=== PATIENT | female | born 1945 | race Caucasian/White ===

== ENCOUNTER → 2017-10-14 | Outpatient (CLI) | payer MEDICARE ==
[~2017-10-14] MED LIST: AMLO10TA6 PO; ASPI-691 PO; ASPI325T17 PO; ATEN50TA41 PO; OMEP40CA6 PO; POTA99TA2 PO; TRAM50TA2 PO; TRIA1TAB5 PO; VITA1TAB3 PO
== END | disposition home or self-care (01) ==
LOC: CARD 07:25
PROVIDERS: ATTEND Family Medicine
DX: G56.03 Carpal tunnel syndrome, bilateral upper limbs (principal)
CPT/HCPCS: 95885; 95908

== ENCOUNTER 2019-05-22 23:18 | Inpatient (IN) | payer MEDICARE, OTHER ==
[~2019-05-22] VITALS: Ht 170.2 cm; Wt 76.4 kg
[~2019-05-22 23:18] MED LIST changes: -AMLO10TA6 PO; +AMLO10TA8 PO; +OMEP40CA42 PO; -OMEP40CA6 PO
[2019-05-22] MEDS: LABETALOL 5MG/ML, 20ML IVPush STA ×2 (23:42→23:51)
[2019-05-22] MEDS ORDERED: LABETALOL 5MG/ML, 20ML ONE (23:50)
--- NOTE | 2019-05-22 23:57 | NUR ---
Pt blood pressure currently 173/62; contacted to verify he wants Labetalol given, MD states to hold medication for now.
[2019-05-23] VITALS (7 sets, daily range): BP systolic 124–186; BP diastolic 70–80
[2019-05-23 00:06] LABS: BASOPHILS # (AUTO) 0.04 x10^3/uL (0-0.1); BASOPHILS % (AUTO) 1 % (0-1); EOSINOPHILS # (AUTO) 0.09 x10^3/uL (0-0.4); EOSINOPHILS % (AUTO) 1 % (1-7); LYMPHOCYTES # (AUTO) 0.76 x10^3/uL (1-3.4); LYMPHOCYTES % (AUTO) 9 % (22-44); MD NO; MEAN CORPUSCULAR HEMOGLOBIN 28.4 pg (27.0-34.8); MEAN CORPUSCULAR HGB CONC 34.2 g/dL (32.4-35.8); MEAN CORPUSCULAR VOLUME 83.2 fL (80-100); MEAN PLATELET VOLUME 8.2 fL (7.4-10.4); MONOCYTES # (AUTO) 0.59 x10^3/uL (0.2-0.8); MONOCYTES % (AUTO) 7 % (2-9); NEUTROPHILS # (AUTO) 7.12 x10^3/uL (1.8-6.8); NEUTROPHILS % (AUTO) 83 % (42-75); PLATELET COUNT 266 x10^3/uL (130-400); RED BLOOD COUNT 5.02 x10^6/uL (3.82-5.3); RED CELL DISTRIBUTION WIDTH 14.7 % (9.6-15.2)
[2019-05-23 00:18] LABS: ALANINE AMINOTRANSFERASE 13 U/L (12-78); ALBUMIN 2.7 g/dL (3.4-5.0); ANION GAP 7 mmol/L (5-15); CALCIUM 8.8 mg/dL (8.5-10.1); CHLORIDE 102 mmol/L (98-107); CREATININE 1.07 mg/dL (0.55-1.02)
[2019-05-23 00:23] LABS: ALKALINE PHOSPHATASE 63 U/L (45-117); BILIRUBIN,TOTAL 0.7 mg/dL (0.2-1.0); TOTAL PROTEIN 6.6 g/dL (6.4-8.2); TROPONIN I < 0.015 ng/mL (0.000-0.045)
--- NOTE | 2019-05-23 01:25 | NUR ---
PT RETURNS FROM CTA AT THIS TIME.
[2019-05-23] MEDS ORDERED: OMNIPAQUE 350 MG/ML, 100ML BOTTLE ONE (01:34)
[2019-05-23] MEDS ORDERED: Enoxaparin 1 mg/kg protocol SQ SCH (02:00)
--- NOTE | 2019-05-23 02:09 | NUR ---
Pt helped to bedside comode. Informed to please not take tramadol or labetolo. That her medications will be managed by the nurses so that way we know whats going in and out of her body.
[2019-05-23] MEDS ORDERED: ONDANSETRON 2MG/ML, 2ML IVPush PRN (03:00)
[2019-05-23] MEDS: ACETAMINOPHEN 325 MG TABLET PO PRN ×3 (05:19→21:01)
[2019-05-23] MEDS: hydrALAzine 20 MG/ML, 1ML IVPush PRN ×2 (05:20→13:38)
[2019-05-23] MEDS ORDERED: LISI-167 PO (06:37)
[2019-05-23 08:34] LABS: MICROSCOPIC AUTO
[2019-05-23 08:35] LABS: CULTURE INDICATED? NO
[2019-05-23] MEDS ORDERED: POTASSIUM CHLORIDE 20 MEQ TAB.ER.PRT PO ONE (09:00)
[2019-05-23 09:41] LABS: TROPONIN I < 0.015 ng/mL (0.000-0.045)
[2019-05-23] MEDS: RIVAROXABAN 15 MG TABLET PO SCH ×2 (09:55→17:24)
[2019-05-23] MEDS: AMLODIPINE 10 MG TAB PO SCH (09:55)
[2019-05-23] MEDS: LISINOPRIL 10 MG TABLET PO SCH (09:55)
[2019-05-23] MEDS: OMEPRAZOLE 20 MG CAPSULE.DR PO SCH (09:55)
[2019-05-23] MEDS ORDERED: TRAM50TA2 PO (11:13)
[2019-05-23] MEDS ORDERED: MORPHINE SULFATE 4 MG/ML, 1ML IVPush PRN (14:00)
[2019-05-23] MEDS ORDERED: OXYcodone/APAP 5/325MG TABLET PO PRN (14:00)
[2019-05-23 14:20] LABS: TROPONIN I < 0.015 ng/mL (0.000-0.045)
[2019-05-23] MEDS: ATENOLOL 50 MG TABLET PO SCH ×3 (15:15→22:47)
[2019-05-23] MEDS ORDERED: RIVAROXABAN 15 MG TABLET PO SCH (17:00)
[2019-05-23 18:04] LABS: TROPONIN I < 0.015 ng/mL (0.000-0.045)
[2019-05-24] VITALS (9 sets, daily range): BP systolic 144–199; BP diastolic 59–79
[2019-05-24 02:07] LABS: BASOPHILS # (AUTO) 0.09 x10^3/uL (0-0.1); BASOPHILS % (AUTO) 1 % (0-1); EOSINOPHILS % (AUTO) 1 % (1-7); LYMPHOCYTES # (AUTO) 0.94 x10^3/uL (1-3.4); LYMPHOCYTES % (AUTO) 11 % (22-44); MD NO; MEAN CORPUSCULAR HGB CONC 33.4 g/dL (32.4-35.8); MEAN CORPUSCULAR VOLUME 83.9 fL (80-100); MEAN PLATELET VOLUME 8.9 fL (7.4-10.4); MONOCYTES % (AUTO) 8 % (2-9); NEUTROPHILS # (AUTO) 6.62 x10^3/uL (1.8-6.8); NEUTROPHILS % (AUTO) 78 % (42-75); PLATELET COUNT 283 x10^3/uL (130-400); RED BLOOD COUNT 4.63 x10^6/uL (3.82-5.3); RED CELL DISTRIBUTION WIDTH 14.6 % (9.6-15.2)
[2019-05-24 02:14] LABS: ALANINE AMINOTRANSFERASE 8 U/L (12-78); ALBUMIN 2.1 g/dL (3.4-5.0); ANION GAP 6 mmol/L (5-15); CALCIUM 8.3 mg/dL (8.5-10.1); CHLORIDE 103 mmol/L (98-107); CREATININE 1.23 mg/dL (0.55-1.02)
[2019-05-24 02:22] LABS: TROPONIN I < 0.015 ng/mL (0.000-0.045)
[2019-05-24 02:26] LABS: ALKALINE PHOSPHATASE 53 U/L (45-117); BILIRUBIN,TOTAL 0.4 mg/dL (0.2-1.0); TOTAL PROTEIN 5.7 g/dL (6.4-8.2)
[2019-05-24] MEDS: ATENOLOL 50 MG TABLET PO SCH ×3 (06:13→22:35)
[2019-05-24] MEDS: ACETAMINOPHEN 325 MG TABLET PO PRN ×2 (07:09→12:16)
[2019-05-24] MEDS: AMLODIPINE 10 MG TAB PO SCH (08:45)
[2019-05-24] MEDS: LISINOPRIL 10 MG TABLET PO SCH (08:45)
[2019-05-24] MEDS: RIVAROXABAN 15 MG TABLET PO SCH ×2 (08:45→16:41)
[2019-05-24] MEDS: OMEPRAZOLE 20 MG CAPSULE.DR PO SCH (08:45)
[2019-05-24] MEDS: hydrALAzine 20 MG/ML, 1ML IVPush PRN (10:15)
[2019-05-24] MEDS: ASA/APAP/ CAFFEINE TABLET PO PRN (12:33)
[2019-05-25] MEDS: ASA/APAP/ CAFFEINE TABLET PO PRN (01:11)
[2019-05-25 02:00] VITALS: BP 151/78
[2019-05-25 06:37] VITALS: BP 189/79
[2019-05-25] MEDS: hydrALAzine 20 MG/ML, 1ML IVPush PRN (07:04)
[2019-05-25 08:06] LABS: ALANINE AMINOTRANSFERASE 13 U/L (12-78); ALBUMIN 2.3 g/dL (3.4-5.0); ANION GAP 7 mmol/L (5-15); CALCIUM 8.7 mg/dL (8.5-10.1); CHLORIDE 101 mmol/L (98-107); CREATININE 0.99 mg/dL (0.55-1.02)
[2019-05-25 08:07] LABS: ALKALINE PHOSPHATASE 56 U/L (45-117); BILIRUBIN,TOTAL 0.5 mg/dL (0.2-1.0); TOTAL PROTEIN 6.3 g/dL (6.4-8.2)
[2019-05-25] MEDS: AMLODIPINE 10 MG TAB PO SCH (08:32)
[2019-05-25] MEDS: ATENOLOL 50 MG TABLET PO SCH (08:32)
[2019-05-25] MEDS: OMEPRAZOLE 20 MG CAPSULE.DR PO SCH (08:32)
[2019-05-25] MEDS: RIVAROXABAN 15 MG TABLET PO SCH (08:32)
[2019-05-25 08:33] VITALS: BP 160/77
[2019-05-25] MEDS ORDERED: LISINOPRIL 40 MG TABLET PO SCH (09:00)
[2019-05-25] MEDS ORDERED: CHLORTHALIDONE 25 MG TABLET PO SCH (09:00)
[2019-05-25 12:30] VITALS: BP 169/72
[2019-05-25] MEDS ORDERED: LISI40TA PO (12:51)
[2019-05-25] MEDS ORDERED: HYDR-3343 PO (12:51)
[2019-05-25] MEDS ORDERED: CHLO25TA PO (12:51)
[2019-05-25] MEDS ORDERED: RIVA15TA PO (12:53)
[2019-05-25] MEDS ORDERED: RIVA20TA PO (12:53)
[2019-05-25] MEDS ORDERED: ATEN25TA PO (12:57)
[2019-05-25] MEDS ORDERED: CLON0.1T22 PO (12:58)
[2019-06-13] MEDS ORDERED: RIVAROXABAN 20 MG TABLET PO SCH (08:00)
== END 2019-05-25 15:04 | disposition home or self-care (01) | DRG 175 ==
LOC: ED 05-23 00:06 → EDIP 05-23 02:24 → 5SO 05-23 04:04
PROVIDERS: ADMIT Internal Medicine; ATTEND Internal Medicine
DX: I26.99 Other pulmonary embolism without acute cor pulmonale (principal); N17.0 Acute kidney failure with tubular necrosis; E87.1 Hypo-osmolality and hyponatremia; I16.1 Hypertensive emergency; J90 Pleural effusion, not elsewhere classified; Z68.1 Body mass index [BMI] 19.9 or less, adult; I16.0 Hypertensive urgency; F17.200 Nicotine dependence, unspecified, uncomplicated; E27.8 Other specified disorders of adrenal gland; I12.9 Hypertensive chronic kidney disease with stage 1 through stage 4 chronic kidney disease, or unspecified chronic kidney disease; J44.9 Chronic obstructive pulmonary disease, unspecified; N18.3 Chronic kidney disease, stage 3 (moderate); Z96.643 Presence of artificial hip joint, bilateral; Z88.0 Allergy status to penicillin; R00.1 Bradycardia, unspecified
CPT/HCPCS: 36415; 71045; 71275; 80053; 81001; 83880; 84443; 84484; 85025; 85303; 85306; 85379; 85598; 85610; 85613; 85670; 85730; 85732; 86146; 86147; 93005; 93306; 93356; 99285; G0378; Q9967; J0360

== ENCOUNTER 2020-09-26 22:34 | Inpatient (IN) | payer MEDICARE, OTHER ==
[~2020-09-26] VITALS: Ht 170.2 cm; Wt 74.6 kg
[~2020-09-26 22:34] MED LIST changes: +AMLO-211 PO; -AMLO10TA8 PO; +ATEN25TA PO; +CHLO25TA PO; +CLON0.1T22 PO; +HYDR-3343 PO; +LISI-167 PO; +LISI40TA9 PO; -OMEP40CA42 PO; +OMEP40CA8 PO; +RIVA15TA PO; +RIVA20TA PO
--- NOTE | 2020-09-26 22:45 | NUR ---
PT REFUSING NC, ONLY ALLOWING RNS TO KEEP NON REBREATHER ON. AWARE.
[2020-09-26] MEDS ORDERED: SODIUM CHLORIDE FLUSH 10ML SYR IVF ONE (23:00)
[2020-09-26 23:33] LABS: BASOPHILS % (AUTO) 0 % (0-1); EOSINOPHILS % (AUTO) 1 % (1-7); LYMPHOCYTES % (AUTO) 5 % (22-44); MEAN CORPUSCULAR HEMOGLOBIN 27.7 pg (27.0-34.8); MEAN PLATELET VOLUME 8.4 fL (7.4-10.4); MONOCYTES % (AUTO) 5 % (2-9); NEUTROPHILS % (AUTO) 90 % (42-75); PLATELET COUNT 321 x10^3/uL (130-400); RED BLOOD COUNT 4.88 x10^6/uL (3.82-5.3)
[2020-09-26 23:42] LABS: INTERNATIONAL NORMALIZED RATIO 0.93 (0.93-1.1)
[2020-09-26 23:43] LABS: ALANINE AMINOTRANSFERASE 28 U/L (12-78); ALBUMIN 2.8 g/dL (3.4-5.0); ANION GAP 8 mmol/L (5-15); CALCIUM 9.1 mg/dL (8.5-10.1); CHLORIDE 98 mmol/L (98-107); CREATININE 1.11 mg/dL (0.55-1.02)
[2020-09-26 23:47] LABS: ALKALINE PHOSPHATASE 59 U/L (45-117); BILIRUBIN,TOTAL 0.5 mg/dL (0.2-1.0); TOTAL PROTEIN 6.8 g/dL (6.4-8.2)
[2020-09-27] MEDS ORDERED: NITROGLYCERIN OINT 2%, 1GM TP ONE
[2020-09-27] MEDS ORDERED: FUROSEMIDE 40 MG/4 ML IVPush ONE
--- NOTE | 2020-09-27 00:18 | NUR ---
PT REPORTS FEELING BETTER WHILE AT REST.
[2020-09-27] MEDS ORDERED: NITROGLYCERIN/D5W PMX 250 ML IV PRN ×2 (00:30→01:00)
[2020-09-27] MEDS ORDERED: HEPARIN 5,000 UNITS/ML, 1ML IV ONE (00:30)
[2020-09-27] MEDS ORDERED: FUROSEMIDE 40 MG/4 ML ONE (00:34)
[2020-09-27] MEDS ORDERED: HEPARIN 5,000 UNITS/ML, 1ML ONE (00:34)
[2020-09-27] MEDS ORDERED: HEPARIN 25,000 UNITS/250ML PMX 250 ML ONE (00:34)
[2020-09-27] MEDS ORDERED: NITROGLYCERIN/D5W PMX 250 ML ONE (00:39)
--- NOTE | 2020-09-27 00:50 | NUR ---
[facility] AT BEDSIDE. PT UPDATED ON POC, ALL QUESTIONS ANSWERED.
[2020-09-27] MEDS ORDERED: MELATONIN 5 MG TABLET PO PRN (01:00)
[2020-09-27] MEDS ORDERED: ACETAMINOPHEN 325 MG TABLET PO PRN (01:00)
[2020-09-27] MEDS ORDERED: ONDANSETRON 2MG/ML, 2ML IVPush PRN (01:00)
[2020-09-27] MEDS ORDERED: POLYETHYLENE GLYCOL 17 GM PACKET PO PRN (01:00)
[2020-09-27] MEDS ORDERED: NITROGLYCERIN 0.4 MG/SPRAY SL PRN (01:00)
[2020-09-27] MEDS ORDERED: NITROGLYCERIN 0.4 MG BOTTLE (25 TABS) SL PRN (01:00)
[2020-09-27] MEDS ORDERED: LABETALOL 5MG/ML, 20ML IVPush PRN (01:00)
--- NOTE | 2020-09-27 01:04 | NUR ---
REPORT TO AGNEL WESTBROOK. PT MOVED TO TR04
[2020-09-27] MEDS: HEPARIN 25,000 UNITS/250ML PMX 250 ML IV PRN (01:12)
[2020-09-27] MEDS ORDERED: POTASSIUM CHLORIDE 40 MEQ in SODIUM CHLORIDE 0.9% 500 ML IV ONE (01:30)
[2020-09-27] MEDS ORDERED: POTASSIUM CHLORIDE 20 MEQ TAB.ER.PRT PO ONE (01:30)
--- NOTE | 2020-09-27 01:33 | NUR ---
PATIENT UPDATED ON PLAN OF CARE. NO NOTED ADDITIONAL NEEDS AT THIS TIME. WARM BLANKETS PROVIDED. PATIENT TOLERATING INTERVENTIONS WELL. VSS. WILL CONITNUE TO MONITOR.
--- NOTE | 2020-09-27 01:40 | NUR ---
PATIENT TRANSPORTED TO ICU WITH TECH AND RN TOLERATED WELL. NO FURTHER QUESTIONS AT BEDSIDE. BEDSIDE HANDOFF FOR HEPARIN DRIP COMPELTED WITH DARIANA MENDOZA
[2020-09-27] MEDS ORDERED: HEPARIN 5,000 UNITS/ML, 1ML IV PRN (02:00)
[2020-09-27] MEDS: morphine SULFATE 10 MG/ML, 1ML IVPush PRN ×3 (03:07→08:32)
[2020-09-27] MEDS ORDERED: AMLODIPINE 5 MG TABLET ONE (03:51)
[2020-09-27] MEDS ORDERED: AMLODIPINE 5 MG TABLET PO ONE (04:00)
[2020-09-27 04:41] LABS: BASOPHILS % (AUTO) 1 % (0-1); EOSINOPHILS % (AUTO) 0 % (1-7); LYMPHOCYTES % (AUTO) 8 % (22-44); MEAN CORPUSCULAR HEMOGLOBIN 27.4 pg (27.0-34.8); MEAN PLATELET VOLUME 8.2 fL (7.4-10.4); MONOCYTES % (AUTO) 6 % (2-9); NEUTROPHILS % (AUTO) 86 % (42-75); PLATELET COUNT 296 x10^3/uL (130-400)
[2020-09-27 04:50] LABS: CALCIUM 8.6 mg/dL (8.5-10.1); CREATININE 0.97 mg/dL (0.55-1.02)
[2020-09-27 05:02] LABS: ANION GAP 8 mmol/L (5-15); CHLORIDE 98 mmol/L (98-107)
[2020-09-27] MEDS ORDERED: CARVEDILOL 3.125 MG TABLET PO SCH (06:00)
[2020-09-27] MEDS: ASPIRIN 81 MG TABLET EC PO SCH (06:02)
[2020-09-27] MEDS: FUROSEMIDE 40 MG/4 ML IV SCH ×2 (07:56→08:02)
[2020-09-27] MEDS: POTASSIUM CHLORIDE 20 MEQ TAB.ER.PRT PO SCH ×2 (07:56→17:27)
[2020-09-27] MEDS: LISINOPRIL 20 MG TABLET PO SCH (09:00)
[2020-09-27] MEDS ORDERED: FAMOTIDINE 20 MG/2 ML IVPush SCH (09:00)
[2020-09-27] MEDS: EZETIMIBE 10 MG TABLET PO SCH ×2 (09:00→11:10)
[2020-09-27] MEDS ORDERED: LISINOPRIL 5 MG TABLET PO SCH ×2 (09:00)
[2020-09-27 09:13] LABS: CHOLESTEROL, TOTAL 246 mg/dL (140-239); TRIGLYCERIDES 76 mg/dL (50-200); VLDL CHOLESTEROL 15 mg/dL (0-25)
[2020-09-27 09:30] LABS: CHOL/HDL RATIO 2.5; HDL CHOL % 40 % (28-40); HDL CHOLESTEROL (DIRECT) 98 mg/dL (40-60); LDL CHOLESTEROL,CALCULATED 133 mg/dL (54-169); LDL/HDL RATIO 1.4 (0.5-3.0)
[2020-09-27] MEDS ORDERED: MIDAZOLAM 1 MG/ML, 5ML ONE (11:17)
[2020-09-27] MEDS ORDERED: TICAGRELOR 90 MG TABLET ONE (11:17)
[2020-09-27] MEDS ORDERED: VERAPAMIL 2.5 MG/ML, 2ML ONE (11:17)
[2020-09-27] MEDS ORDERED: FENTANYL PF 100 MCG/2ML ONE (11:17)
[2020-09-27] MEDS ORDERED: LIDOCAINE-MPF 1%, 5ML ONE (11:18)
[2020-09-27] MEDS ORDERED: BIVALIRUDIN 250 MG ONE (11:18)
[2020-09-27] MEDS ORDERED: HEPARIN 1,000 UNITS/ML, 10ML ONE (11:18)
[2020-09-27] MEDS: SODIUM CHLORIDE 0.9% 1,000 ML IV SCH ×2 (12:15→20:00)
[2020-09-27] MEDS: CARVEDILOL 3.125 MG TABLET PO SCH (17:27)
[2020-09-27] MEDS: AMLODIPINE 5 MG TABLET PO SCH (20:40)
[2020-09-27] MEDS ORDERED: ATORVASTATIN 80 MG TABLET PO SCH (21:00)
[2020-09-27] MEDS ORDERED: ATORVASTATIN 40 MG TABLET PO SCH (21:00)
[2020-09-28] MEDS: SODIUM CHLORIDE 0.9% 1,000 ML IV SCH (03:15)
[2020-09-28] MEDS: HEPARIN 25,000 UNITS/250ML PMX 250 ML IV PRN (03:26)
[2020-09-28 04:45] LABS: BASOPHILS % (AUTO) 0 % (0-1); EOSINOPHILS % (AUTO) 0 % (1-7); LYMPHOCYTES % (AUTO) 5 % (22-44); MEAN CORPUSCULAR HEMOGLOBIN 27.6 pg (27.0-34.8); MEAN CORPUSCULAR HGB CONC 34.1 g/dL (32.4-35.8); MEAN PLATELET VOLUME 8.5 fL (7.4-10.4); MONOCYTES % (AUTO) 9 % (2-9); NEUTROPHILS % (AUTO) 86 % (42-75); PLATELET COUNT 258 x10^3/uL (130-400); RED BLOOD COUNT 4.39 x10^6/uL (3.82-5.3); RED CELL DISTRIBUTION WIDTH 15.4 % (9.6-15.2)
[2020-09-28 04:55] LABS: ALANINE AMINOTRANSFERASE 32 U/L (12-78); ALBUMIN 2.4 g/dL (3.4-5.0); ANION GAP 9 mmol/L (5-15); CALCIUM 9.1 mg/dL (8.5-10.1); CHLORIDE 96 mmol/L (98-107); CREATININE 1.12 mg/dL (0.55-1.02)
[2020-09-28 04:57] LABS: ALKALINE PHOSPHATASE 55 U/L (45-117); BILIRUBIN,TOTAL 0.9 mg/dL (0.2-1.0); TOTAL PROTEIN 6.4 g/dL (6.4-8.2)
[2020-09-28] MEDS: CARVEDILOL 3.125 MG TABLET PO SCH ×2 (05:05→18:22)
[2020-09-28] MEDS: ASPIRIN 81 MG TABLET EC PO SCH (05:05)
[2020-09-28] MEDS: AMLODIPINE 5 MG TABLET PO SCH ×2 (08:12→20:31)
[2020-09-28] MEDS: FAMOTIDINE 20 MG TABLET PO SCH (08:13)
[2020-09-28] MEDS: LISINOPRIL 20 MG TABLET PO SCH (08:13)
[2020-09-28] MEDS ORDERED: FAMOTIDINE 20 MG/2 ML IVPush SCH (09:00)
[2020-09-28] MEDS: EZETIMIBE 10 MG TABLET PO SCH (09:00)
[2020-09-28 11:00] VITALS: BP 153/64
[2020-09-28] MEDS: ENOXAPARIN 40 MG/0.4 ML SQ SCH (12:29)
[2020-09-28 14:48] VITALS: BP 147/71
[2020-09-28] MEDS ORDERED: CLOPIDOGREL 300 MG TABLET PO ONE (15:30)
[2020-09-28] MEDS ORDERED: POTASSIUM CHLORIDE 20 MEQ TAB.ER.PRT PO ONE (15:30)
[2020-09-28 20:29] VITALS: BP 169/96
[2020-09-29 00:28] VITALS: BP 145/77
[2020-09-29 04:50] LABS: ANION GAP 9 mmol/L (5-15); CHLORIDE 93 mmol/L (98-107)
[2020-09-29 04:52] LABS: CREATININE 1.13 mg/dL (0.55-1.02)
[2020-09-29 05:42] VITALS: BP 137/76
[2020-09-29] MEDS: ASPIRIN 81 MG TABLET EC PO SCH (05:43)
[2020-09-29] MEDS: CARVEDILOL 3.125 MG TABLET PO SCH ×2 (05:43→18:19)
[2020-09-29 06:16] VITALS: BP 150/72
[2020-09-29] MEDS: FAMOTIDINE 20 MG TABLET PO SCH (09:00)
[2020-09-29] MEDS: LISINOPRIL 20 MG TABLET PO SCH (09:34)
[2020-09-29] MEDS: CLOPIDOGREL 75 MG TABLET PO SCH (09:34)
[2020-09-29] MEDS: AMLODIPINE 5 MG TABLET PO SCH ×2 (09:34→21:03)
[2020-09-29] MEDS: EZETIMIBE 10 MG TABLET PO SCH (09:34)
[2020-09-29] MEDS ORDERED: POTASSIUM CHLORIDE 20 MEQ TAB.ER.PRT PO ONE (11:00)
[2020-09-29] MEDS ORDERED: FUROSEMIDE 20 MG/2 ML IV ONE (11:00)
[2020-09-29] MEDS: ENOXAPARIN 40 MG/0.4 ML SQ SCH (11:43)
[2020-09-29] MEDS: ISOSORBIDE MONONITRATE ER 30 MG TABLET PO SCH (11:43)
[2020-09-29 12:14] VITALS: BP 144/82
[2020-09-29] MEDS ORDERED: ALBUTEROL/IPRATROPIUM 2.5MG/0.5MG, 3 ML ONE (12:48)
[2020-09-29] MEDS ORDERED: ALBUTEROL/IPRATROPIUM 2.5MG/0.5MG, 3 ML NPPB PRN (13:00)
[2020-09-29] MEDS: CEFTRIAXONE 1,000 MG in DEXTROSE 5% 50 ML IVPB SCH (15:56)
[2020-09-29 19:37] VITALS: BP 134/87
[2020-09-29] MEDS: ALBUTEROL/IPRATROPIUM 2.5MG/0.5MG, 3 ML NPPB SCH (20:00)
[2020-09-29] MEDS: DOXYCYCLINE 100MG TABLET PO SCH (21:03)
[2020-09-30 00:09] VITALS: BP 125/81
[2020-09-30 04:59] LABS: BASOPHILS % (AUTO) 0 % (0-1); EOSINOPHILS % (AUTO) 0 % (1-7); LYMPHOCYTES % (AUTO) 4 % (22-44); MEAN CORPUSCULAR HEMOGLOBIN 27.3 pg (27.0-34.8); MEAN PLATELET VOLUME 8.8 fL (7.4-10.4); MONOCYTES % (AUTO) 8 % (2-9); NEUTROPHILS % (AUTO) 88 % (42-75); PLATELET COUNT 285 x10^3/uL (130-400); RED BLOOD COUNT 3.97 x10^6/uL (3.82-5.3); RED CELL DISTRIBUTION WIDTH 15.6 % (9.6-15.2)
[2020-09-30 05:10] LABS: CALCIUM 9.1 mg/dL (8.5-10.1); CHLORIDE 91 mmol/L (98-107)
[2020-09-30 05:15] LABS: ALANINE AMINOTRANSFERASE 24 U/L (12-78); ALBUMIN 2.2 g/dL (3.4-5.0); ALKALINE PHOSPHATASE 55 U/L (45-117); ANION GAP 10 mmol/L (5-15); BILIRUBIN,TOTAL 0.6 mg/dL (0.2-1.0); TOTAL PROTEIN 6.3 g/dL (6.4-8.2)
[2020-09-30 05:40] VITALS: BP 145/82
[2020-09-30] MEDS: ASPIRIN 81 MG TABLET EC PO SCH (05:47)
[2020-09-30] MEDS: CARVEDILOL 3.125 MG TABLET PO SCH (05:47)
[2020-09-30] MEDS: ALBUTEROL/IPRATROPIUM 2.5MG/0.5MG, 3 ML NPPB SCH ×3 (06:48→14:27)
[2020-09-30 07:14] VITALS: BP 124/79
[2020-09-30] MEDS: FAMOTIDINE 20 MG TABLET PO SCH (09:47)
[2020-09-30] MEDS: ISOSORBIDE MONONITRATE ER 30 MG TABLET PO SCH (09:47)
[2020-09-30] MEDS: LISINOPRIL 20 MG TABLET PO SCH (09:47)
[2020-09-30] MEDS: AMLODIPINE 5 MG TABLET PO SCH (09:47)
[2020-09-30] MEDS: DOXYCYCLINE 100MG TABLET PO SCH (09:47)
[2020-09-30] MEDS: CLOPIDOGREL 75 MG TABLET PO SCH (09:48)
[2020-09-30] MEDS: EZETIMIBE 10 MG TABLET PO SCH (09:48)
[2020-09-30] MEDS: ENOXAPARIN 40 MG/0.4 ML SQ SCH (12:13)
[2020-09-30 12:38] VITALS: BP 145/85
[2020-09-30] MEDS ORDERED: CLOP75TA PO (14:44)
[2020-09-30] MEDS ORDERED: LISI-170 PO (14:44)
[2020-09-30] MEDS ORDERED: APIX5TAB PO (14:44)
[2020-09-30] MEDS ORDERED: DOXY100T PO (14:44)
[2020-09-30] MEDS ORDERED: AMLO-150 PO (14:44)
[2020-09-30] MEDS ORDERED: CEFD300C37 PO (14:44)
[2020-09-30] MEDS ORDERED: ISOS30TA8 PO (14:44)
[2020-09-30] MEDS ORDERED: CARV12.52 PO (14:44)
[2020-09-30] MEDS ORDERED: EZET10TA48 PO (14:44)
[2020-09-30] MEDS: CEFTRIAXONE 1,000 MG in DEXTROSE 5% 50 ML IVPB SCH (15:18)
[2020-09-30] MEDS ORDERED: CARVEDILOL 12.5 MG TABLET PO SCH (18:00)
[2020-09-30] MEDS ORDERED: APIXABAN 5 MG TABLET PO SCH (21:00)
== END 2020-09-30 18:42 | DRG 280 ==
LOC: ED 23:38 → EDIP 09-27 00:47 → CCU 09-27 01:38 → 5SO 09-28 11:30
PROVIDERS: ADMIT Internal Medicine; ATTEND Internal Medicine
PROC: 4A023N7 Measurement of Cardiac Sampling and Pressure, Left Heart, Percutaneous Approach (ICD-10-PCS; principal; 2020-09-27)
PROC: B2111ZZ Fluoroscopy of Multiple Coronary Arteries using Low Osmolar Contrast (ICD-10-PCS; 2020-09-27)
PROC: B2151ZZ Fluoroscopy of Left Heart using Low Osmolar Contrast (ICD-10-PCS; 2020-09-27)
DX: I21.4 Non-ST elevation (NSTEMI) myocardial infarction (principal); I50.41 Acute combined systolic (congestive) and diastolic (congestive) heart failure; J96.01 Acute respiratory failure with hypoxia; I50.43 Acute on chronic combined systolic (congestive) and diastolic (congestive) heart failure; J18.9 Pneumonia, unspecified organism; I13.0 Hypertensive heart and chronic kidney disease with heart failure and stage 1 through stage 4 chronic kidney disease, or unspecified chronic kidney disease; D68.69 Other thrombophilia; E87.1 Hypo-osmolality and hyponatremia; J44.0 Chronic obstructive pulmonary disease with (acute) lower respiratory infection; Q21.1 Atrial septal defect; I42.9 Cardiomyopathy, unspecified; Z88.0 Allergy status to penicillin; Z88.2 Allergy status to sulfonamides; Z88.8 Allergy status to other drugs, medicaments and biological substances; E27.8 Other specified disorders of adrenal gland; E78.5 Hyperlipidemia, unspecified; E87.6 Hypokalemia; E88.09 Other disorders of plasma-protein metabolism, not elsewhere classified; F19.10 Other psychoactive substance abuse, uncomplicated; I25.10 Atherosclerotic heart disease of native coronary artery without angina pectoris; I25.2 Old myocardial infarction; I27.20 Pulmonary hypertension, unspecified; I48.0 Paroxysmal atrial fibrillation; K21.9 Gastro-esophageal reflux disease without esophagitis; M17.0 Bilateral primary osteoarthritis of knee; N18.30 Chronic kidney disease, stage 3 unspecified; Z86.711 Personal history of pulmonary embolism; Z86.718 Personal history of other venous thrombosis and embolism; Z87.891 Personal history of nicotine dependence
CPT/HCPCS: 36415; 36600; 71045; 80048; 80053; 80061; 82803; 83036; 83735; 83880; 84484; 85025; 85520; 85610; 85730; 87040; 87081; 93005; 93306; 93356; 93458; 94640; 96374; 99156; 99291; C1769; C1894; G0378; J0583; J0696; J1644; J1650; J1940; J2250; J2405; J3010; J3480; J2270; J7030; J7040; Q9967